=== PATIENT | male | born 1965 | race Caucasian/White ===

== ENCOUNTER 2017-05-04 20:20 | Emergency (ER) | payer OTHER ==
[~2017-05-04] VITALS: Ht 180.3 cm; Wt 134.8 kg
[2017-05-04 20:24] VITALS: TEMP 36.8; Ht 180.3 cm; Wt 134.8 kg
[2017-05-04] MEDS ORDERED: NAPR1TAB9 PO (21:40)
--- NOTE | 2017-05-04 21:47 | EMERGENCY ROOM VISIT NOTE ---
History Report prepared by Wilder: Gabriel Bowie Under the Supervision of: Dr. Torrey Burger D.O. First contact with patient: 21:29 Chief Complaint: CHEST PAIN Stated Complaint: CHEST DISCOMFORT Nursing Triage Summary: Patient with c/o chest pain since Wednesday. Intermittent left pain now radiating to left shoulder. History of Present Illness The patient is a 52 year old male who presents to the Emergency Room with complaints of resolved left sided chest dull pain that occurred this morning. He is not in any pain at all at the moment. Two days ago, the patient had some left-sided chest discomfort that lasted about 10 minutes. This morning, it happened again, but lasted all day. Nothing makes the pain better or worse. He denies any fevers, shortness of breath, nausea, vomiting, diaphoresis, or calf swelling. He has no other complaints at this time, however he states he feels "off." He denies any medical problems or family history of cardiac disease. Source of History: patient Onset: this morning Position: chest (left) Symptom Intensity: minimal Quality: dull Timing: resolved Associated Symptoms: No fevers, No diaphoresis, No SOB, No nausea, No vomiting Note: He feels "off." Review of Systems See HPI for pertinent positives and negatives. A total of ten systems were reviewed and were otherwise negative. Past Medical & Surgical Medical Problems: (1) No Known Active Medical Problems Family History Patient reports no known family medical history. Social History Smoking Status: Never Smoker Smokeless Tobacco Use: No Drug Use: none Marital Status: Housing Status: lives with family Occupation Status: employed Current/Historical Medications Scheduled Naproxen (Aleve), 440 MG PO QAM Allergies Coded Allergies: BEE STING (Unverified Allergy, Unknown, ANAPHYLAXIS, 05/04/17) Physical Exam Vital Signs Date Time Temp Pulse Resp B/P (MAP) Pulse Ox O2 Delivery O2 Flow Rate FiO2 05/04/17 23:00 59 14 97 05/04/17 22:45 64 17 95 05/04/17 22:28 62 20 139/83 97 Room Air 05/04/17 21:48 97 Room Air 05/04/17 21:46 59 05/04/17 21:45 57 131/89 05/04/17 20:24 36.8 75 16 167/99 97 Room Air Physical Exam GENERAL: Awake, alert, well-appearing, in no distress HENT: Normocephalic, atraumatic. Oropharynx unremarkable. EYES: Normal conjunctiva. Sclera non-icteric. NECK: Supple. No nuchal rigidity. FROM. No JVD. RESPIRATORY: Clear to auscultation. CARDIAC: Regular rate, normal rhythm. Extremities warm and well perfused. Pulses equal. ABDOMEN: Soft, non-distended. No tenderness to palpation. No rebound or guarding. No masses. RECTAL: Deferred. MUSCULOSKELETAL: Chest examination reveals no tenderness. The back is symmetrical on inspection without obvious abnormality. There is no CVA tenderness to palpation. No joint edema. LOWER EXTREMITIES: Calves are equal size bilaterally and non-tender. No edema. No discoloration. NEURO: Normal sensorium. No sensory or motor deficits noted. SKIN: No rash or jaundice noted. Medical Decision & Procedures ER Provider Diagnostic Interpretation: Radiology results as stated below per my review and radiologist interpretation CHEST ONE VIEW PORTABLE CLINICAL HISTORY: CHEST PAIN pain COMPARISON STUDY: No previous studies for comparison. FINDINGS: The bones soft tissues and hemidiaphragms are normal. The cardiomediastinal silhouette is normal. The lungs are clear. The pulmonary vasculature is normal. IMPRESSION: Negative chest. The above report was generated using voice recognition software. It may contain grammatical, syntax or spelling errors. Electronically signed by: Andi Yang M.D. 05/04/2017 10:00 PM Dictated Date/Time: 05/04/2017 10:00 PM Laboratory Results 05/04/17 21:38 Red Blood Count 5.27, Mean Corpuscular Volume 90.1, Mean Corpuscular Hemoglobin 29.8, Mean Corpuscular Hemoglobin Concent 33.1, Mean Platelet Volume 11.1, Neutrophils (%) (Auto) 64.9, Lymphocytes (%) (Auto) 25.6, Monocytes (%) (Auto) 7.4, Eosinophils (%) (Auto) 1.4, Basophils (%) (Auto) 0.3, Neutrophils # (Auto) 5.20, Lymphocytes # (Auto) 2.05, Monocytes # (Auto) 0.59, Eosinophils # (Auto) 0.11, Basophils # (Auto) 0.02 05/04/17 21:38 Test 05/04/17 21:38 9/5/17 23:33 White Blood Count 8.00 K/uL (4.8-10.8) Red Blood Count 5.27 M/uL (4.7-6.1) Hemoglobin 15.7 g/dL (14.0-18.0) Hematocrit 47.5 % (42-52) Mean Corpuscular Volume 90.1 fL (80-100) Mean Corpuscular Hemoglobin 29.8 pg (25-34) Mean Corpuscular Hemoglobin Concent 33.1 g/dl (32-36) Platelet Count 188 K/uL (130-400) Mean Platelet Volume 11.1 fL (7.4-10.4) Neutrophils (%) (Auto) 64.9 % Lymphocytes (%) (Auto) 25.6 % Monocytes (%) (Auto) 7.4 % Eosinophils (%) (Auto) 1.4 % Basophils (%) (Auto) 0.3 % Neutrophils # (Auto) 5.20 K/uL (1.4-6.5) Lymphocytes # (Auto) 2.05 K/uL (1.2-3.4) Monocytes # (Auto) 0.59 K/uL (0.11-0.59) Eosinophils # (Auto) 0.11 K/uL (0-0.5) Basophils # (Auto) 0.02 K/uL (0-0.2) RDW Standard Deviation 42.3 fL (36.4-46.3) RDW Coefficient of Variation 13.0 % (11.5-14.5) Immature Granulocyte % (Auto) 0.4 % Immature Granulocyte # (Auto) 0.03 K/uL (0.00-0.02) Anion Gap 5.0 mmol/L (3-11) Est Creatinine Clear Calc Drug Dose 126.4 ml/min Estimated GFR () 103.8 Estimated GFR (Non- 89.5 BUN/Creatinine Ratio 14.3 (10-20) Calcium Level 9.1 mg/dl (8.5-10.1) Total Bilirubin 0.5 mg/dl (0.2-1) Direct Bilirubin 0.1 mg/dl (0-0.2) Aspartate Amino Transf (AST/SGOT) 31 U/L (15-37) Alanine Aminotransferase (ALT/SGPT) 31 U/L (12-78) Alkaline Phosphatase 65 U/L (45-117) Total Protein 7.4 gm/dl (6.4-8.2) Albumin 4.1 gm/dl (3.4-5.0) Bedside Troponin I < 0.030 ng/ml (0-0.045) Laboratory results reviewed by me ECG Indication: chest pain Rate (beats per minute): 56 Rhythm: sinus bradycardia Findings: no acute ischemic change, other (Normal intervals, normal axis) ED Course 2128: The patient was evaluated in room A3. A complete history and physical exam was performed. 0000: The patient's repeat troponin was negative. He is having no chest pain and is doing well. Discussed results and discharge instructions: He verbalized understanding and agreement. The patient is ready for discharge. Medical Decision Differential diagnosis: Etiologies such as cardiac ischemia, aortic dissection, pulmonary embolism, pneumonia, pneumothorax, musculoskeletal, infections, pericarditis, myocarditis , esophageal rupture, gastrointestinal, as well as others were entertained. Patient has a very low heart score. Patient does not have any current chest pain no significant risk factors for coronary artery disease. Patient on repeat examination at 12:05 AM is resting and no chest pain. Patient had a normal EKG normal chest x-ray normal labs and 2 normal troponins. He will follow up primary care physician or return for worsening symptoms within this week Medication Reconcilliation Current Medication List: was personally reviewed by me Blood Pressure Screening Patient's blood pressure: Elevated blood pressure Blood pressure disposition: Elevated BP felt to be situational Impression Primary Impression: Non-cardiac chest pain Scribe Attestation The scribe's documentation has been prepared under my direction and personally reviewed by me in its entirety. I confirm that the note above accurately reflects all work, treatment, procedures, and medical decision making performed by me. Departure Information Dispostion Home / Self-Care Forms Call Back Authorization, HOME CARE DOCUMENTATION FORM, IMPORTANT VISIT INFORMATION Patient Instructions Chest Pain - [facility], [facility] Additional Instructions Follow-up with primary care physician ;get outpatient cardiac testing; return to emergency department force
[2017-05-04 21:48] VITALS: O2SAT 97
[2017-05-04 21:51] LABS: BASO % 0.3 %; BASO ABS # 0.02 K/uL (0-0.2); COMPLETE YES; EOS % 1.4 %; HEMATOCRIT 47.5 % (42-52); IG% 0.4 %; LYMPH % 25.6 %; LYMPH ABS # 2.05 K/uL (1.2-3.4); MEAN CELL VOLUME 90.1 fL (80-100); MEAN CORPUSCULAR HEMOGLOBIN 29.8 pg (25-34); MEAN CORPUSCULAR HGB CONC 33.1 g/dl (32-36); MEAN PLATELET VOLUME 11.1 fL (7.4-10.4); MONO % 7.4 %; NEUT % 64.9 %; PLATELET COUNT 188 K/uL (130-400); RED BLOOD COUNT 5.27 M/uL (4.7-6.1)
--- NOTE | 2017-05-04 22:01 | DIAGNOSTIC IMAGING REPORT ---
CHEST ONE VIEW PORTABLE CLINICAL HISTORY: CHEST PAIN pain COMPARISON STUDY: No previous studies for comparison. FINDINGS: The bones soft tissues and hemidiaphragms are normal. The cardiomediastinal silhouette is normal. The lungs are clear. The pulmonary vasculature is normal. IMPRESSION: Negative chest. The above report was generated using voice recognition software. It may contain grammatical, syntax or spelling errors. Electronically signed by: Andi Yang M.D. 05/04/2017 10:00 PM Dictated Date/Time: 05/04/2017 10:00 PM
[2017-05-04 22:16] LABS: BUN/CREATININE RATIO 14.3 (10-20); CALCIUM 9.1 mg/dl (8.5-10.1); CREATININE 0.98 mg/dl (0.60-1.40); POTASSIUM 3.7 mmol/L (3.5-5.1)
[2017-05-05 00:18] VITALS: PULSE 61; O2SAT 95
[2017-05-05 00:20] VITALS: BP 158/95
== END 2017-05-05 00:21 | disposition home or self-care (01) ==
LOC: C.EDB 20:21 → C.EDA 05-05 00:21
DX: R07.89 Other chest pain (principal)